=== PATIENT | female | born 1985 | race American Indian/Alaskan Native ===

== ENCOUNTER 2018-10-03 18:08 | Inpatient (IN) | payer OTHER ==
[2018-10-03 18:49] LABS: Hematocrit 35.4 % (30.3-42.9); Hemoglobin 12.4 gm/dl (10.1-14.3); Mean Corpuscular HGB Conc 35 % (30-34); Mean Corpuscular Volume 82 fl (79-97); Platelet Count 260 K/mm3 (140-440); Red Blood Count 4.32 M/mm3 (3.65-5.03); Red Cell Distribution Width 15.3 % (13.2-15.2)
[2018-10-03 18:57] LABS: Bacteria,Urine 1+ /HPF (Negative); Bilirubin,Urine NEG (Negative); Blood,Urine NEG (Negative); Color,Urine Yellow (Yellow); Mucus,Urine 1+ /HPF; Protein,Urine <15 mg/dL mg/dL (Negative); Urobilinogen,Urine < 2.0 mg/dL (<2.0)
[2018-10-03 19:24] LABS: Alanine Aminotransferase 40 units/L (7-56)
[2018-10-03 19:55] LABS: Uric Acid 4.4 mg/dL (3.5-7.6)
[2018-10-03] MEDS ORDERED: SUBLIMAZE IV PRN (20:14)
[2018-10-03] MEDS ORDERED: ZOFRAN IV PRN (20:14)
[2018-10-03] MEDS ORDERED: BRETHINE SUB-Q PRN (20:14)
[2018-10-03] MEDS ORDERED: BRETHINE IVP PRN (20:14)
[2018-10-03] MEDS ORDERED: MINERAL OIL PO PRN (20:14)
[2018-10-03] MEDS ORDERED: STADOL IV PRN (20:14)
[2018-10-03] MEDS ORDERED: AMBIEN PO PRN (20:23)
--- NOTE | 2018-10-03 20:32 | History and Physical Report ---
History of Present Illness Date of examination: 10/03/18 Chief complaint: Elevated BP's in the office History of present illness: Pt is a 33yo BF EDC 10/12/18; EGA 38 5/7 weeks presents from the office for evaluation of elevated BP's 139/96. In Triage her BP's range from 155-172/102-119. She has a mild headache. She received late care at [facility] since 32 weeks after transfer from [facility]. course significant for IUFD's @ 24 and 28 weeks, and Chronic hypertension on Labetolol 400mg BID, Procardia 30mg QD and Aspirin 81mg Daily. records are available and GBS is Positive. Past History Past Medical History: hypertension Past Surgical History: no surgical history Family/Genetic History: none Social history: no significant social history, single - Obstetrical History Expected Date of Delivery: 10/12/18 Actual Gestation: 38 Week(s) 5 Day(s) : 4 Medications and Allergies Allergies Allergy/AdvReac Type Severity Reaction Status Date / Time chloroquine AdvReac Unknown Verified 10/03/18 18:24 Home Medications Medication Instructions Recorded Confirmed Last Taken Type Labetalol [Normodyne] 400 mg PO BID 10/03/18 10/03/18 10/03/18 History NIFEdipine [Nifedipine] 1 tab PO QDAY 10/03/18 10/03/18 10/03/18 History Multivitamin Tablet 1 tab PO QDAY 10/03/18 10/03/18 10/03/18 History Active Meds: Active Medications Butorphanol Tartrate (Stadol) 2 mg IV Q2H PRN PRN Reason: Pain , Severe (7-10) Dinoprostone (Cervidil) 10 mg VG ONCE ONE Stop: 10/03/18 20:15 Ephedrine Sulfate (Ephedrine Sulfate) 10 mg IV Q2M PRN PRN Reason: Hypotension Fentanyl (Sublimaze) 100 mcg IV Q2H PRN PRN Reason: Labor Pain Ampicillin Sodium (Ampicillin/Ns 1 Gm/50 Ml) 1 gm in 50 mls @ 100 mls/hr IV Q4HR RADHA; Protocol Ampicillin Sodium (Polycillin/Ns 2 Gm/100 Ml) 2 gm in 100 mls @ 100 mls/hr IV ONCE ONE; Protocol Stop: 10/03/18 21:20 Lactated Ringer's (Lactated Ringers) 1,000 mls @ 125 mls/hr IV DIRECT RADHA Oxytocin/Sodium Chloride (Pitocin/Ns 20 Unit/1000ml Drip) 20 units in 1,000 mls @ 125 mls/hr IV DIRECT RADHA Oxytocin/Sodium Chloride (Pitocin/Ns 30 Unit/500ml) 30 units in 500 mls @ 1 mls/hr IV TITR RADHA; Protocol Oxytocin/Sodium Chloride (Pitocin/Ns 30 Unit/500ml) 30 units in 500 mls @ 4 ml s/hr IV TITR RADHA; Protocol Labetalol HCl (Normodyne) 200 mg PO BID RADHA Labetalol HCl (Normodyne) 10 mg IV ONCE ONE Stop: 10/03/18 20:25 Lidocaine (Xylocaine 2%) 20 ml INFILTRATI ONCE ONE Stop: 10/03/18 20:15 Mineral Oil (Mineral Oil) 30 ml PO QHS PRN PRN Reason: Constipation Ondansetron HCl (Zofran) 4 mg IV Q8H PRN PRN Reason: Nausea And Vomiting Terbutaline Sulfate (Brethine) 0.25 mg SUB-Q ONCE PRN PRN Reason: Hyperstimulation/Hypertonicity Terbutaline Sulfate (Brethine) 0.25 mg IVP ONCE PRN PRN Reason: Hyperstimulation/Hypertonicity Zolpidem Tartrate (Ambien) 10 mg PO QHS PRN PRN Reason: Insomnia Review of Systems All systems: negative - Vital Signs Vital signs: Vital Signs Pulse BP Pulse Ox 80 172/103 99 10/03/18 18:36 10/03/18 18:36 10/03/18 18:36 Temp Pulse Resp BP Pulse Ox 97.2 F L 86 20 167/102 99 10/03/18 18:49 10/03/18 20:21 10/03/18 18:49 10/03/18 20:21 10/03/18 20:21 - Physical Exam Cardiovascular: Regular rate Lungs: Positive: Clear to auscultation Abdomen: Positive: normal appearance, soft Genitourinary (Female): Positive: normal external genitalia Uterus: Positive: enlarged Extremities: Positive: edema - Obstetrical FHR: category 1 Uterine Contraction Monitor Mode: External Cervical Dilatation: 0.5 Cervical Effacement Percentage: 50 station: -3 Uterine Contraction Pattern: Irregular Uterine Tone Measurement Phase: Contraction Uterine Contraction Intensity: Mild Results Result Diagrams: 10/03/18 18:36 10/03/18 18:36 Abnormal lab results 10/03/18 10/03/18 Range/Units 18:36 18:36 MCHC 35 H (30-34) % RDW 15.3 H (13.2-15.2) % Creatinine 0.5 L (0.7-1.2) mg/dL Lactate Dehydrogenase 191 H (91-180) units/L All other labs normal. Assessment and Plan - Patient Problems (1) 38 weeks gestation of Onset Date: 10/03/18 Current Visit: Yes Status: Acute Plan to address problem: A: IUP @ 38 5/7 weeks Chronic hypertension H/O IUFD AMA Late care +GBS P: Admit to L&D for cervidil/pitocin induction of labor IV and PO Labetolol for BP control IV magnesium sulfate if necessary IV Ampicillin (2) Chronic hypertension affecting Onset Date: 10/03/18 Current Visit: Yes Status: Acute
[2018-10-03] MEDS ORDERED: PITOCin/NS 30 UNIT/500ML 30 UNITS/500 ML BAG IV SCH ×2 (21:00)
[2018-10-03] MEDS ORDERED: LACTATED RINGERS 1,000 ML IV SCH (21:00)
[2018-10-03] MEDS ORDERED: XYLOCAINE 2% INFILTRATI ONE (21:00)
[2018-10-03] MEDS ORDERED: NORMODYNE IV ONE (21:00)
[2018-10-03] MEDS ORDERED: CERVIDIL VG ONE (21:14)
[2018-10-03] MEDS ORDERED: AMPICILLIN/NS 2 GM/100 ML 2 GM/100 ML BAG IV ONE (21:21)
[2018-10-03] MEDS: NORMODYNE PO SCH (21:22)
[2018-10-04] MEDS: AMPICILLIN/NS 1 GM/50 ML 1 GM/50 ML BAG IV SCH (06:02)
[2018-10-04] MEDS ORDERED: AMPICILLIN/NS 2 GM/100 ML 2 GM/100 ML BAG IV ONE (08:00)
[2018-10-04] MEDS: PITOCin/NS 20 UNIT/1000ML DRIP 20 UNITS/1,000 ML BAG IV SCH ×2 (09:02→10:58)
[2018-10-04] MEDS ORDERED: CYTOTEC ONE (09:06)
[2018-10-04] MEDS ORDERED: XYLOCAINE 2% INFILTRATI ONE (09:07)
[2018-10-04] MEDS ORDERED: APRESOLINE ONE (09:35)
--- NOTE | 2018-10-04 09:36 | Procedure Note ---
OB Delivery Note - Delivery Date of Delivery: 10/04/18 Surgeon: VIVIANA WYLIE Estimated blood loss: 300cc - Vaginal Delivery presentation: vertex Delivery position: OA Intrapartum events: none Delivery induction: cervidil Delivery augmentation: rupture of membranes, pitocin Delivery monitor: external FHT, external uterine Route of delivery: Delivery placenta: spontaneous Delivery cord: nuchal cord, 3 umbilical vessels Episiotomy: none Delivery laceration: 2nd degree Delivery repair: vicryl Anesthesia: local Delivery comments: delivered OA and placed on Mom's chest for [id number] bonding and delayed cord clamping, cut by Uncle - A at 1 minute: 8 at 5 minutes: 9 Gender: Female (2845gms)
[2018-10-04] MEDS: NORMODYNE PO SCH ×2 (09:39→22:00)
[2018-10-04] MEDS ORDERED: LANSINOH TP PRN (09:41)
[2018-10-04] MEDS ORDERED: TYLENOL PO PRN (09:41)
[2018-10-04] MEDS ORDERED: ZOFRAN IV PRN (09:41)
[2018-10-04] MEDS ORDERED: DULCOLAX PR PRN (09:41)
[2018-10-04] MEDS ORDERED: TUCKS PAD TP PRN (09:41)
[2018-10-04] MEDS ORDERED: PHENERGAN PO PRN (09:41)
[2018-10-04] MEDS ORDERED: BENADRYL PO PRN (09:41)
[2018-10-04] MEDS ORDERED: PHENERGAN PR PRN (09:41)
[2018-10-04] MEDS ORDERED: MILK OF MAGNESIA PO PRN (09:41)
[2018-10-04] MEDS ORDERED: SODIUM CHLORIDE FLUSH SYRINGE 10 ML IV NR (10:00)
[2018-10-04] MEDS ORDERED: PITOCin/NS 20 UNIT/1000ML DRIP 20 UNITS/1,000 ML BAG IV SCH (10:00)
[2018-10-04] MEDS ORDERED: MAGNESIUM SULFATE 40GM/1000ML 40 GM/1,000 ML BAG IV SCH (10:00)
[2018-10-04] MEDS: IBUPROFEN PO SCH (10:58)
[2018-10-04] MEDS: PROCARDIA XL PO SCH (10:58)
[2018-10-04] MEDS ORDERED: CYTOTEC PR ONE (11:00)
[2018-10-04] MEDS ORDERED: MAGNESIUM SULFATE 4GM/100ML 4 GM/100 ML BAG IV ONE (11:00)
[2018-10-04] MEDS ORDERED: AMPICILLIN/NS 1 GM/50 ML 1 GM/50 ML BAG IV SCH (12:00)
[2018-10-04 14:43] LABS: Basophils % (Auto) 0.2 % (0.0-1.8); Eosinophils # (Auto) 0.1 K/mm3 (0.0-0.4); Eosinophils % (Auto) 0.7 % (0.0-4.3); Hematocrit 29.3 % (30.3-42.9); Hematocrit 30.4 % (30.3-42.9); Hemoglobin 10.1 gm/dl (10.1-14.3); Lymphocytes # (Auto) 1.2 K/mm3 (1.2-5.4); Lymphocytes % (Auto) 9.6 % (13.4-35.0); Mean Corpuscular HGB Conc 34 % (30-34); Mean Corpuscular Volume 83 fl (79-97); Monocytes # (Auto) 0.7 K/mm3 (0.0-0.8); Monocytes % (Auto) 5.2 % (0.0-7.3); Platelet Count 251 K/mm3 (140-440); Red Blood Count 3.54 M/mm3 (3.65-5.03)
[2018-10-04 21:19] LABS: Hematocrit 30.3 % (30.3-42.9); Hemoglobin 10.5 gm/dl (10.1-14.3)
[2018-10-04] MEDS: FEOSOL PO SCH (22:19)
[2018-10-04] MEDS: COLACE PO SCH (22:19)
[2018-10-05] MEDS: IBUPROFEN PO SCH ×3 (02:19→22:47)
[2018-10-05] MEDS ORDERED: M-M-R II VACCINE SUB-Q ONE (09:41)
[2018-10-05] MEDS ORDERED: BOOSTRIX IM ONE (09:41)
--- NOTE | 2018-10-05 10:12 | Progress Note ---
Assessment and Plan - Patient Problems (1) 38 weeks gestation of Onset Date: 10/03/18 Current Visit: Yes Status: Resolved (2) Chronic hypertension affecting Onset Date: 10/03/18 Current Visit: Yes Status: Resolved (3) (normal spontaneous vaginal delivery) Onset Date: 10/05/18 Current Visit: Yes Status: Resolved Plan to address problem: A: S/P - PPD #1 Doing well Chronic hypertension - stable Asymptomatic anemia - stable P: May go home tomorrow. Subjective - Subjective Date of service: 10/05/18 Principal diagnosis: s/p - PPD #1 Interval history: Pt is feeling well without complaints. Bleeding improved. Patient reports: appetite normal, voiding normally, pain well controlled, flatus, ambulating normally, no dizzy ambulation, no nauseated [place]: doing well, nursing well, bottle feeding Objective - Vital Signs Latest vital signs: Vital Signs Temp Pulse Resp BP BP Pulse Ox 10/05/18 08:39 98.2 F 93 H 14 125/80 98 10/05/18 05:12 98.3 F 82 18 122/79 10/05/18 00:50 98.2 F 87 20 121/79 10/04/18 22:00 87 120/82 10/04/18 21:44 98.6 F 87 18 120/82 10/04/18 18:30 99.0 F 86 16 143/92 10/04/18 17:47 88 100 10/04/18 17:45 98 F 17 10/04/18 17:22 99 H 100 10/04/18 17:17 85 100 10/04/18 17:13 98 F 17 10/04/18 17:03 85 139/93 100 10/04/18 16:58 91 H 100 10/04/18 16:57 34 L 85 10/04/18 16:52 90 100 10/04/18 16:48 86 142/95 10/04/18 16:47 86 100 10/04/18 16:42 86 100 10/04/18 16:37 72 98 10/04/18 16:33 71 131/83 10/04/18 16:32 71 98 10/04/18 16:27 83 98 10/04/18 16:22 75 98 10/04/18 16:18 71 133/85 10/04/18 16:17 76 98 01/12/19 16:12 84 99 10/04/18 16:07 73 99 10/04/18 16:03 72 131/84 10/04/18 16:02 76 99 10/04/18 15:57 76 98 10/04/18 15:52 73 99 10/04/18 15:48 72 134/80 10/04/18 15:47 73 99 10/04/18 15:42 71 99 10/04/18 15:37 70 99 10/04/18 15:33 83 129/81 10/04/18 15:32 74 99 10/04/18 15:27 74 99 10/04/18 15:22 81 99 10/04/18 15:18 72 133/81 10/04/18 15:17 74 99 10/04/18 15:12 78 100 10/04/18 15:07 79 100 10/04/18 15:03 85 125/78 10/04/18 15:02 78 99 10/04/18 14:57 76 99 10/04/18 14:48 82 120/78 10/04/18 14:45 82 123/78 10/04/18 14:18 90 72/37 69 L 10/04/18 14:17 92 H 100 10/04/18 14:12 82 99 10/04/18 14:11 84 85/49 10/04/18 14:08 88 79/52 10/04/18 14:00 100 H 99 10/04/18 13:55 94 H 99 10/04/18 13:49 88 100 10/04/18 13:47 104 H 84 10/04/18 13:45 85 99 10/04/18 13:40 88 99 10/04/18 13:38 83 132/88 10/04/18 13:35 84 98 10/04/18 13:30 83 98 10/04/18 13:25 85 98 10/04/18 13:20 87 98 10/04/18 13:15 87 99 10/04/18 13:10 89 99 10/04/18 13:08 89 136/92 10/04/18 13:05 84 99 10/04/18 13:00 89 98 10/04/18 12:55 87 98 10/04/18 12:50 89 98 10/04/18 12:45 91 H 98 10/04/18 12:40 84 98 10/04/18 12:35 86 98 10/04/18 12:32 85 128/84 10/04/18 12:30 91 H 98 10/04/18 12:25 93 H 99 10/04/18 12:20 95 H 99 10/04/18 12:17 88 136/90 10/04/18 12:12 93 H 98 10/04/18 12:07 85 98 10/04/18 12:02 92 H 99 10/04/18 11:47 85 143/91 10/04/18 11:27 85 142/93 10/04/18 11:00 98.3 F 18 10/04/18 10:52 100 H 144/98 10/04/18 10:17 110 H 146/92 Intake and Output 10/04/18 10/05/18 10/05/18 22:59 06:59 14:59 Intake Total 370 240 Output Total 2550 650 Balance -2180 -410 Intake: IV 250 Left Hand 250 Intake, Free Water 120 240 Output: Urine 2550 650 Indwelling Catheter 2000 Void 550 650 Other: Total, Output Amount 550 350 # Voids Void 1 - Exam Cardiovascular: Present: Regular rate Lungs: Present: Clear to auscultation Abdomen: Present: normal appearance, soft Uterus: Present: normal, firm, fundal height below umbilicus Extremities: Present: normal - Labs Labs: Abnormal lab results 10/04/18 10/04/18 10/04/18 Range/Units 12:44 14:28 14:28 WBC 12.7 H (4.5-11.0) K/mm3 RBC 3.54 L (3.65-5.03) M/mm3 Hgb 10.0 L (10.1-14.3) gm/dl Hct 29.3 L D (30.3-42.9) % Lymph % (Auto) 9.6 L (13.4-35.0) % Seg Neutrophils % 84.3 H (40.0-70.0) % Seg Neutrophils # 10.7 H (1.8-7.7) K/mm3 Magnesium 2.90 H (1.7-2.3) mg/dL Laboratory Tests 10/03/18 10/03/18 10/03/18 18:31 18:36 18:36 WBC 7.4 RBC 4.32 Hgb 12.4 Hct 35.4 MCV 82 MCH 29 MCHC 35 H RDW 15.3 H Plt Count 260 Lymph % (Auto) [place] % (Auto) Eos % (Auto) Baso % (Auto) Lymph # [place] # Eos # Baso # Seg Neutrophils % Seg Neutrophils # Creatinine 0.5 L Estimated GFR > 60 Uric Acid 4.4 Magnesium AST 36 ALT 40 Lactate Dehydrogenase 191 H Urine Color Yellow Urine Turbidity Clear Urine pH 6.0 Ur Specific [place] 1.024 Urine Protein <15 mg/dl Urine Glucose (UA) Neg Urine Ketones Neg Urine Blood Neg Urine Nitrite Neg Urine Bilirubin Neg Urine Urobilinogen < 2.0 Ur Leukocyte Esterase Lg Urine WBC (Auto) 4.0 Urine RBC (Auto) 1.0 U Epithel Cells (Auto) 6.0 Urine Bacteria (Auto) 1+ Urine Mucus 1+ RPR Hep Bs Antigen Blood Type Antibody Screen 10/03/18 10/03/18 10/04/18 20:34 20:34 12:44 WBC RBC Hgb Hct MCV MCH MCHC RDW Plt Count Lymph % (Auto) [place] % (Auto) Eos % (Auto) Baso % (Auto) Lymph # [place] # Eos # Baso # Seg Neutrophils % Seg Neutrophils # Creatinine Estimated GFR Uric Acid Magnesium 2.90 H AST ALT Lactate Dehydrogenase Urine Color Urine Turbidity Urine pH Ur Specific [place] Urine Protein Urine Glucose (UA) Urine Ketones Urine Blood Urine Nitrite Urine Bilirubin Urine Urobilinogen Ur Leukocyte Esterase Urine WBC (Auto) Urine RBC (Auto) U Epithel Cells (Auto) Urine Bacteria (Auto) Urine Mucus RPR Nonreactive Hep Bs Antigen Blood Type A POSITIVE Antibody Screen Negative 10/04/18 10/04/18 10/04/18 14:28 14:28 18:14 WBC 12.7 H RBC 3.54 L Hgb 10.1 10.0 L Hct 29.3 L D 30.4 MCV 83 MCH 29 MCHC 34 RDW 15.0 Plt Count 251 Lymph % (Auto) 9.6 L [place] % (Auto) 5.2 Eos % (Auto) 0.7 Baso % (Auto) 0.2 Lymph # 1.2 [place] # 0.7 Eos # 0.1 Baso # 0.0 Seg Neutrophils % 84.3 H Seg Neutrophils # 10.7 H Creatinine Estimated GFR Uric Acid Magnesium AST ALT Lactate Dehydrogenase Urine Color Urine Turbidity Urine pH Ur Specific [place] Urine Protein Urine Glucose (UA) Urine Ketones Urine Blood Urine Nitrite Urine Bilirubin Urine Urobilinogen Ur Leukocyte Esterase Urine WBC (Auto) Urine RBC (Auto) U Epithel Cells (Auto) Urine Bacteria (Auto) Urine Mucus RPR Hep Bs Antigen Non-reactive Blood Type Antibody Screen 10/04/18 10/04/18 10/05/18 18:18 21:00 00:54 WBC RBC Hgb 10.5 Hct 30.3 MCV MCH MCHC RDW Plt Count Lymph % (Auto) [place] % (Auto) Eos % (Auto) Baso % (Auto) Lymph # [place] # Eos # Baso # Seg Neutrophils % Seg Neutrophils # Creatinine Estimated GFR Uric Acid Magnesium 2.30 2.00 AST ALT Lactate Dehydrogenase Urine Color Urine Turbidity Urine pH Ur Specific [place] Urine Protein Urine Glucose (UA) Urine Ketones Urine Blood Urine Nitrite Urine Bilirubin Urine Urobilinogen Ur Leukocyte Esterase Urine WBC (Auto) Urine RBC (Auto) U Epithel Cells (Auto) Urine Bacteria (Auto) Urine Mucus RPR Hep Bs Antigen Blood Type Antibody Screen
--- NOTE | 2018-10-05 10:50 | Discharge Summary ---
Providers - Providers Date of Admission: 10/03/18 20:54 Date of discharge: 10/06/18 Attending physician: VIVIANA WYLIE Primary care physician: VIVIANA WYLIE Hospitalization Reason for admission: induction of labor, IUP at term, other (Chronic hypertension ) Delivery: Episiotomy: none Laceration: vaginal side wall, 2nd degree Other procedures: none complications: none Discharge diagnosis: IUP at term delivered baby: female Hospital course: Pt is a 33yo BF EDC 10/12/18; EGA 38 5/7 weeks who presented from the office for evaluation of elevated BP's 139/96. In Triage her BP's range from 155-172/102-119. She had a mild headache. She received late care at [facility] since 32 weeks after transfer from [facility]. course significant for IUFD's @ 24 and 28 weeks, and Chronic hypertension on Labetolol 400mg BID, Procardia 30mg QD and Aspirin 81mg Daily. She was admitted and induced using cervidil and pitocin, and subsequently had a vaginal delivery. course was unremarkable. Condition at discharge: Good Disposition: DC-01 TO HOME OR SELFCARE - Discharge Diagnoses (1) 38 weeks gestation of Status: Resolved (2) Chronic hypertension affecting Status: Resolved (3) (normal spontaneous vaginal delivery) Status: Resolved Plan - Discharge Medications Prescriptions: Ferrous Sulfate [Feosol 325 MG tab] 325 mg PO BID #60 tablet Ibuprofen [Motrin 600 MG tab] 600 mg PO Q6H #30 tablet Labetalol [Normodyne TAB] 400 mg PO BID #60 tablet NIFEdipine XL [Procardia Xl] 30 mg PO QDAY #30 tablet Vit-Fe Fumar-FA [ Vitamin] 1 each PO QDAY #30 tablet - Provider Discharge Summary Activity: routine, no sex for 6 weeks, no heavy lifting 4 weeks, no strenuous exercise Diet: routine Instructions: routine Additional instructions: [] Smoking cessation referral if applicable(refer to patient education folder for contact #) [] Refer to [facility] Booklet Call your doctor immediately for: * Fever > 100.5 * Heavy vaginal bleeding ( >1 pad per hour) * Severe persistent headache * Shortness of breath * Reddened, hot, painful area to leg or breast * Drainage or odor from incision. * Keep incision clean and dry at all times and follow doctor's instructions regarding bathing/showering Follow up in office for BP check in 1 week - Follow up plan Follow up: VIVIANA WYLIE MD [Primary Care Provider] - 7 Days
[2018-10-05] MEDS: NORMODYNE PO SCH ×2 (11:05→22:46)
[2018-10-05] MEDS: PRENATAL VITAMIN PO SCH (11:05)
[2018-10-05] MEDS: FEOSOL PO SCH ×2 (11:05→22:29)
[2018-10-05] MEDS: PROCARDIA XL PO SCH (11:05)
[2018-10-05] MEDS: COLACE PO SCH ×2 (11:05→22:45)
[2018-10-06] MEDS: IBUPROFEN PO SCH ×2 (06:28→10:29)
[2018-10-06] MEDS: PROCARDIA XL PO SCH (09:29)
[2018-10-06] MEDS: COLACE PO SCH (09:29)
[2018-10-06] MEDS: FEOSOL PO SCH (09:29)
[2018-10-06] MEDS: PRENATAL VITAMIN PO SCH (09:29)
[2018-10-06] MEDS: NORMODYNE PO SCH (09:43)
[2018-10-06 11:34] VITALS: BP 124/73
== END 2018-10-06 13:35 | disposition home or self-care (01) | DRG 806 ==
LOC: TRG 18:08 → LD 20:54 → OB 10-04 18:20
PROVIDERS: ADMIT Obstetrics & Gynecology; ATTEND Obstetrics & Gynecology
PROC: 3E0P7VZ Introduction of Hormone into Female Reproductive, Via Natural or Artificial Opening (ICD-10-PCS; 2018-10-03)
PROC: 10E0XZZ Delivery of Products of Conception, External Approach (ICD-10-PCS; principal; 2018-10-04)
PROC: 0KQM0ZZ Repair Perineum Muscle, Open Approach (ICD-10-PCS; 2018-10-04)
PROC: 3E0234Z Introduction of Serum, Toxoid and Vaccine into Muscle, Percutaneous Approach (ICD-10-PCS; 2018-10-05)
DX: O69.81X0 Labor and delivery complicated by cord around neck, without compression, not applicable or unspecified (principal); O10.02 Pre-existing essential hypertension complicating childbirth; Z37.0 Single live birth; O99.824 Streptococcus B carrier state complicating childbirth; O70.1 Second degree perineal laceration during delivery; Z3A.38 38 weeks gestation of pregnancy; Z23 Encounter for immunization
CPT/HCPCS: 36415; 59200; 81001; 82565; 83615; 83735; 84450; 84460; 84550; 85014; 85018; 85025; 85027; 86592; 86706; 86762; 86850; 86900; 86901; G0378; J0290; J0360; J0595; J2590; J3475; J7120